=== PATIENT | female | born 1945 | race Caucasian/White ===

== ENCOUNTER 2016-07-10 13:57 | Inpatient (IN) | payer MEDICARE, OTHER ==
[~2016-07-10] VITALS: Ht 160 cm; Wt 109.1 kg
[2016-07-10] VITALS (9 sets, daily range): BP systolic 110–143; BP diastolic 50–70; PULSE 59–75; RESP 14–19; O2SAT 95–100
[~2016-07-10 13:57] MED LIST: ALBU8.5H4 IH; CITA20TA PO; IBUP200T48 PO; Multivitamin PO
[2016-07-10] MEDS ORDERED: NAPR375T4 PO (14:06)
[2016-07-10] MEDS ORDERED: ACET-171 PO (14:06)
--- NOTE | 2016-07-10 14:16 | ED.REPORT ---
HPI-Chest Pain 40 and Over Date of Service Jul 10, 2016 ED Provider: Lynne Roberts MD This is a 71 year old female presenting to the emergency department complaining of substernal chest pain that began 2 days ago. Chest pain has been intermittent but is worse today, it is now constant without radiation. Denies radiation to arms, back, or jaw. The chest pain is not exertional. Denies tarry stools, vomiting, nausea, dizziness, lightheadedness, headache, cough, SOB, or diaphoresis. Denies lower extremity swelling. She took 2, 81 mg ASA today. She takes daily naproxen and Tylenol for chronic groin pain. Nursing Notes Stated Complaint: CHEST PAIN Chief Complaint: Chest Pain Nursing Notes Reviewed: Yes Allergies: Coded Allergies: No Known Drug Allergies (Verified Allergy, Unknown, 07/10/16) Uncoded Allergies: PEPPERS (Allergy, Unknown, GI, 12/09/03) Scheduled Multivits-Min/Iron/FA/Lutein (Centrum Silver Women Tablet) 8 Mg Iron-400 Mcg- 300 Mcg Tablet 1 EACH PO DAILY Naproxen (Naproxen) 375 Mg Tablet.dr 375 MG PO BIDWM Scheduled PRN Acetaminophen (Acetaminophen) 500 Mg Tablet 500 MG PO Q6H PRN PRN For Pain Albuterol HFA (Proair HFA) 8.5 Gm Hfa.aer.ad 2 PUFFS INHALATION Q4H PRN PRN For Shortness of Breath General Time Seen by MD: 14:13 Chief Complaint Chest pain Hx Obtained From: Patient Arrived By: Ambulance Sudden in Onset?: Yes Onset Occurred: 2 days ago Symptom Duration: Since onset Severity: Current: Mild Pertinent Negative: Pt denies other symptoms Recent Healthcare: No recent doctor visit, No recent hospitalization Similar Sx Previous: No Risk Factors )( CAD Risk Stratification Family history Risk factors reviewed Past Medical History Past Medical History Chronic groin pain Past Surgical History Knee surgeries x2 hernia repair Reports: Cholecystectomy Ambulatory Status Independent Review of Systems Constitutional: Denies: Chills, Fever Respiratory: Denies: Non-productive cough, Shortness of breath Cardiovascular: Reports: Chest pain GI: Denies: Abdominal pain, Nausea, Vomiting Skin: Denies Bruising, Denies Diaphoresis Neurologic: Denies: Confusion, Dizziness, Headache, Lightheaded Complete sys rev & neg: except as marked. Physical Exam Initial Vital Signs Vital Signs (First) Date Time Temp Pulse Resp B/P Pulse Ox O2 Delivery O2 Flow Rate FiO2 07/10/16 14:00 36.3 75 16 126/61 99 Room Air Initial VS: Reviewed Head / Eyes: Atraumatic, Normocephalic, PERRL ENT: Mucous membranes moist, Conjunctiva normal, No scleral icterus Neck: Supple, Non-tender, Full range of motion Extremities: Vascular intact, Neuro intact, No swelling, No tenderness Skin: Warm, Dry, No cyanosis Neurologic: Alert, Oriented, Nonfocal Psychiatric: Mood/affect normal, Behavior normal, Normal thought content General/Constitutional: Awake, Alert Respiratory / Chest: Breath sounds NL, Breath sounds = bilat, No respiratory distress, No rales, No rhonchi, No wheezing, No stridor Tenderness to left lower sternal border on palpation that is similar to what prompted her ED visit Cardiovascular: Heart rate NL, Regular rhythm, Heart sounds NL, No murmurs, Peripheral circulation NL, Pulses = bilaterally, No gross BP differential Abdomen: Soft, McBurney's non-tender, BS normoactive, No distention, No hernia , No palpable mass Tender LUQ to palpation Interpretation & Diagnostics Lab Results Interpretation Result Diagram: 07/10/16 1435 07/11/16 0540 Test 07/10/16 14:35 White Blood Count 7.7th/mm3 (3.8-10.1) Red Blood Count 4.66mil/mm3 (3.90-5.20) Hemoglobin 13.5g/dL (12.0-15.6) Hematocrit 40.3% (35.0-46.0) Mean Corpuscular Volume 86.5fL (81-100) Mean Corpuscular Hemoglobin 29.0pg (27.0-35.0) Mean Corpuscular Hemoglobin Concent 33.5% (32.0-37.0) Red Cell Distribution Width 13.6% (12.3-15.4) Platelet Count 239bil/L (150-400) Neutrophils (%) (Auto) 62.7% (40-74) Lymphocytes (%) (Auto) 23.4% (14-46) Monocytes (%) (Auto) 9.2% (4-12) Eosinophils (%) (Auto) 4.1% (0-5) Basophils (%) (Auto) 0.5% (0-3) D-Dimer < 0.5mg/L (<0.50) Total Bilirubin 0.4mg/dL (0.0-1.2) Aspartate Amino Transf (AST/SGOT) 14U/L (0-50) Alanine Aminotransferase (ALT/SGPT) 11U/L (0-32) Alkaline Phosphatase 63U/L (25-165) Total Protein 6.9g/dL (6.4-8.4) Albumin 4.2g/dL (3.4-5.0) Hold Regalado Top Tube Received (Received) ECG Interpretation ECG Interpretation: NSR at a rate of 71 ventricular premature complexes PACs Time: 14:25 Interpreted by: ED physician ECG Interpretation: ECG with recurrent symptoms NSR at a rate of 69 No changes from prior Time: 17:17 Interpreted by: ED physician X-Ray Chest Interpretation Chest Xray Interpretation: IMPRESSION: No acute cardiopulmonary disease process. Dictated by: Shirlene Anderson MD, PhD on 07/10/2016 at 15:32 Approved by: Shirlene Anderson MD, PhD on 07/10/2016 at 15:32 Re-Eval/Medical Decision Med Decision/Clinical Course presents to the ER with 3 days of CP, pain in the last hours. EKG without ischemia. Initial trop slightly elevated and 2 hr repeat back to baseline. Chest pain completely resolved with 3 SL nitro. Recurred at rest about 2 hours later. Repeat EKG still showing no acute ischemia. Care escalated with pain recurring at rest and responsive to nitro. Nitro and heparin gtts started. Admit for further cardiac eval. Time of Eval: 17:12 Re-Evaluation/Progress Note: CP resolved with nitro but is now present on re-evaluation. Discussed lab results and need for admission, all questions addressed Consultation #1: Referral / Consult Name: Ben Royal MD Consulted With: Hospitalist Call Returned at: 17:23 Kettle Hand: Accepts admit Consultation #2: Referral / Consult Name: Teresa Canela MD Consulted With: Cardiology Call Returned at: 17:42 Kettle Hand: Will see patient Counseled Regarding: Diagnosis, Lab results, Need for follow-up, Need for admission Discharge & Departure Primary Impression: ACS (acute coronary syndrome) Additional Impression: Chest pain Chest pain type: unspecified Qualified Code: R07.9 - Chest pain, unspecified Disposition: ADMITTED TO HOSPITAL Discharge Condition All VS Reviewed: Yes Condition: Stable Referrals: Roro Pozo (PCP) (Family) Crit Care Except Billable Proc Time Spent: 30-74 minutes Services Performed: Patient management by me, Time spent at bedside, Reviewing test results, Reviewing imaging, Discussing patient care, Documentation in record, Time with fam/surrogate Scribe Attestation Portions of this note were transcribed by Bulmaro Barlow. Dr. Armando Castro personally performed the history, physical exam and medical decision-making; I reviewed and confirmed the accuracy of the information in the transcribed note. Signed by: marimar Hernandez. 07/10/2016, 18:00. Lynne Roberts MD Jul 10, 2016 14:16 BULMARO BARLOW Jul 10, 2016 14:18 Chest Xray Interpretation: IMPRESSION: No acute cardiopulmonary disease process. Dictated by: Shirlene Anderson MD, PhD on 07/10/2016 at 15:32 Approved by: Shirlene Anderson MD, PhD on 07/10/2016 at 15:32 Re-Eval/Medical Decision Time of Eval: 17:12 Re-Evaluation/Progress Note: CP resolved with nitro but is now present on re-evaluation. Discussed lab results and need for admission, all questions addressed Consultation #1: Referral / Consult Name: Ben Royal MD Consulted With: Hospitalist Call Returned at: 17:23 Kettle Hand: Accepts admit Consultation #2: Referral / Consult Name: Teresa Canela MD Consulted With: Cardiology Call Returned at: 17:42 Kettle Hand: Will see patient Counseled Regarding: Diagnosis, Lab results, Need for follow-up, Need for admission Discharge & Departure Primary Impression: Chest pain Chest pain type: unspecified Qualified Code: R07.9 - Chest pain, unspecified Disposition: ADMITTED TO HOSPITAL Discharge Condition All VS Reviewed: Yes Condition: Stable Referrals: Roro Pozo (PCP) (Family) Scribe Attestation Portions of this note were transcribed by Bulmaro Barlow. Dr. Armando Castro personally performed the history, physical exam and medical decision-making; I reviewed and confirmed the accuracy of the information in the transcribed note. Signed by: marimar Hernandez. 07/10/2016, 18:00. Lynne Roberts MD Jul 10, 2016 14:16 BULMARO BARLOW Jul 10, 2016 14:18
[2016-07-10 14:53] LABS: BASOPHILS % (AUTO) 0.5 % (0-3); EOSINOPHILS % (AUTO) 4.1 % (0-5); MONOCYTES % (AUTO) 9.2 % (4-12); Mean Corpuscular Volume 86.5 fL (81-100); NEUTROPHILS % (AUTO) 62.7 % (40-74); Platelet Count 239 bil/L (150-400)
[2016-07-10 15:16] LABS: TROPONIN T 0.012 ug/L (0.0-0.011)
[2016-07-10 15:27] LABS: Magnesium 2.1 mg/dL (1.6-2.6)
--- NOTE | 2016-07-10 15:33 | DRSVH ---
PROCEDURE: X-RAY CHEST ONE VIEW, PORTABLE ([id number]) INDICATIONS: chest pain TECHNIQUE: One view of the chest was acquired. COMPARISON: [facility], , CHEST 1VW (PORTABLE), 01/05/2010, 4:45. FINDINGS: Surgical changes and devices: None. Lungs and pleura: No pleural effusions or pneumothorax. Lungs are clear. Mediastinum: Mediastinal contours appear normal. Heart size is normal. Bones and chest wall: No suspicious bony lesions. Overlying soft tissues appear unremarkable. IMPRESSION: No acute cardiopulmonary disease process. Dictated by: Shirlene Anderson MD, PhD on 07/10/2016 at 15:32 Approved by: Shirlene Anderson MD, PhD on 07/10/2016 at 15:32
[2016-07-10] MEDS ORDERED: Nitroglycerin 50 mg/250 mL D5W 50,000 MCG in IV Premix 1 EACH IV ONE (17:18)
[2016-07-10] MEDS ORDERED: Heparin 5,000 Unit/mL Inj IVPUSH ONE (17:20)
[2016-07-10] MEDS ORDERED: Heparin 25K Unit/500mL 0.45 NS 25,000 UNIT in IV Premix 1 EACH IV ONE (17:20)
[2016-07-10] MEDS ORDERED: MULT-1065 PO (18:27)
[2016-07-10] MEDS ORDERED: ALBU8.5H2 INHALATION (18:27)
[2016-07-10] MEDS ORDERED: Alum-Mag Hydrox-Simeth 30 mL Suspension PO PRN (19:10)
[2016-07-10] MEDS ORDERED: Ondansetron 2 mg/mL 2 mL Inj IVPUSH PRN (19:10)
--- NOTE | 2016-07-10 19:34 | PCM.HPMED ---
Subjective Date of Service Jul 10, 2016 Primary Provider: Admitting Physician: Ben Royal MD Primary Care Physician: Roro Pozo Attending Physician: Ben Royal MD Chief Complaint: Chest pain History of Present Illness: This is a 71 year old with past medical history of obesity, inguinal hernia who presented to the emergency room complaining of substernal chest pain that has been going on for 2-3 days . Chest pain is retrosternal , intermittent ,78/10 intensity, non radiating , initially relieved by aspirin , but has gotten worse today. She denies shortness of breath,, vomiting, nausea, dizziness, lightheadedness, headache, cough,fever, chills, or diaphoresis. She usually takes daily naproxen and Tylenol for chronic groin pain. Review of Systems: Review of systems is pertinent for chest pain as described above in history of present illness, otherwise a comprehensive review by 10 points is negative Allergies Coded Allergies: No Known Drug Allergies (Verified Allergy, Unknown, 07/10/16) Uncoded Allergies: PEPPERS (Allergy, Unknown, GI, 12/09/03) Home Medications Scheduled Albuterol-Expunged Drug, Do Not Renew! (Albuterol-Expunged Drug, Do Not Renew!) 8.5 Gm Hfa.aer.ad 2 PUFFS IH PRN Take 2 puffs every 4-6 hours if needed for wheezing. Naproxen (Naproxen) 375 Mg Tablet.dr 375 MG PO BID Scheduled PRN Acetaminophen (Acetaminophen) 500 Mg Tablet 500 MG PO Q6H PRN PRN For Pain PMH Obesity, inguinal hernia, groin pain Surgical History Knee surgeries x2 hernia repair Reports: Cholecystectomy Family History Family history reviewed and is pertinent for sister with atrial fibrillation and heart disease, father of heart disease at 70. Mother had COPD Social History Hx Alcohol Use: Yes (twice a week) Alcoholic Drinks Per Day: 1 glass of wine Hx Substance Use: No Hx Tobacco Use: No Living Arrangement: with Family Exam Vital Signs Vital Sign - Last Date Time Temp Pulse Resp B/P Pulse Ox O2 Delivery O2 Flow Rate FiO2 07/10/16 18:31 67 19 143/61 100 Room Air 07/10/16 14:00 36.3 Exam General/Constitutional: Obese female in bed comfortably, no acute distress HEENT : Atraumatic, Normocephalic, PERRL, sclerae anicteric Mouth: Mucous membranes moist, no oral thrush Neck: Supple, Non-tender, Full range of motion, no JVD, trachea is midline Lungs: Clear bilaterally, local, no wheezing Heart : S1, S2 regular with no gallop no murmur Abdomen: Soft, nontender, nondistended. Bowel sounds normal quadrantss, no deformity Extremities: Vascular intact, , No swelling, No tenderness Skin: Warm, Dry, No cyanosis, no rash, no ulcers Neurologic: Alert, Oriented x3 , grossly intact Nonfocal Psychiatric: Mood/affect normal, Behavior normal, Normal thought content Lab and Diagnostics Result Diagram: 07/10/16 1435 07/10/16 1435 X-Rays, CTs and MRIs Chest x-ray personally reviewed: No acute cardiopulmonary disease process. Assessment & Plan 1. Acute chest pain . 2 Hypertension Admit inpatient /telemetry monitoring. Troponin borderline elevated. Follow up troponin trend. Initial EKG reviewed and is unremarkable to my interpretation Heparin drip protocol initiated by ER physician as well as nitroglycerin drip. Aspirin 81 mg orally daily. Home medications reviewed and reconciled . Obtain, A1c, lipid profile , TSH . Cardiology consulted. May need cardiac cath is troponin continue trending up. Full code . Pain Evaluation: Adequate Pain Control VTE Prophylaxis: Other (On heparin drip for acute chest pain ) Resuscitation Status: CPR: Attempt Resuscitation Time spent 75 minutes Ben Royal MD Jul 10, 2016 19:34
[2016-07-10 20:30] LABS: APPEARANCE,URINE CLOUDY (CLEAR,HAZY); COLOR,URINE YELLOW (YELLOW); OCCULT BLOOD,URINE TRACE (NEGATIVE); UROBILINOGEN,URINE NORMAL (NORMAL)
[2016-07-10 20:52] LABS: Creatine Kinase 48 U/L (21-215); Magnesium 2.2 mg/dL (1.6-2.6)
[2016-07-10 21:03] LABS: TROPONIN T < 0.010 ug/L (0.0-0.011)
[2016-07-11] VITALS (10 sets, daily range): BP systolic 125–164; BP diastolic 71–84; PULSE 67–75; RESP 16–20; O2SAT 96–98
[2016-07-11] MEDS: Sodium Chloride LOK Flush 10 mL Syringe IVFLUSH SCH ×3 (00:30→16:45)
[2016-07-11 02:11] LABS: Creatine Kinase 47 U/L (21-215)
[2016-07-11] MEDS ORDERED: Heparin 25K Unit/500mL 0.45 NS 25,000 UNIT in IV Premix 1 EACH IV SCH (02:40)
[2016-07-11] MEDS ORDERED: Heparin Protocol Boluses IVPUSH PRN (02:40)
--- NOTE | 2016-07-11 03:10 | NUR ---
Admit/CP Pt arrived to [facility] RM 2017 at approximately 2000. Pt arrived via gurney and was able to transfer self to bed with strong gait noted. Pt states that she will need to get up frequently to move her legs as she has chronic groin pain. Pt arrived with Heparin and Nitro gtt's infusing. Pt is A&Ox3 and with no CP at that time. Med Rec completed in ED and Admit completed. Pt orient to hospital policies, call light and bed. Family at bedside. Around 0100 pt c/o of some nausea, diaphoresis as well as some CP. EKG ordered and showed no changes. Increased Nitro gtt to 20mcg and administered 4mg Zofran. BP 164/77 HR 66. Medications effective at decreasing CP and nausea, no further complaints.
--- NOTE | 2016-07-11 09:33 | NUR ---
Social Work Note - Initial Assessment Ladi Alfonso is a 71 yr old admitted for ACS - Chest Pain. EMR reviewed: Pt has Medicare and [employer] Supplement. Her PCP is Roro Pozo. No VA benefits, No LTC insurance. No DPOA - [employer] provided paperwork. See attached CM initial assessment. [employer] met with pt - introduced DC planning and explained SW role. Pt's daughter also in the room. Pt lives at home with her . She is independent at baseline - Drives, uses a cane for long walks. She anticipates going home with no identified needs. [employer] provided support - provided information for pt to explore help with her bill. No other needs identified. Plan: Home with in POV. ERA Moise Addendum: 07/11/16 at 0936 by SWETA COCHRAN SS Amended: Links added.
--- NOTE | 2016-07-11 09:43 | CONS ---
[address] [address] CONSULTATION REPORT PATIENT: JEANNETTE OLMEDO : 1945 MR#: [id number] ADMIT: 07/10/2016 JOB ID: [id number] DATE OF SERVICE: 07/11/2016 CHIEF COMPLAINT: Chest pain. I have been asked by the hospitalist to consult on this patient. HISTORY OF PRESENT ILLNESS: The patient is a 71-year-old woman, who tells me that she has a history of white coat hypertension but is not on any medications at this time. She says for the past couple of days she has been having chest discomfort in her mid chest. It has some components of pressure, some sharp and some dull. The pain has been fairly steady. Did not worsen with exertion. It is not worsen with deep inspiration, and felt somewhat better when she was sitting up rather than lying down. She came to the ED given these symptoms, and had no acute EKG changes thus far, and she is now ruled out by serial cardiac markers. She denies any associated shortness of breath, nausea, vomiting, diaphoresis. She denies problems with orthopnea, PND, increased lower extremity swelling, palpitations, presyncope, or syncope. PAST MEDICAL HISTORY/PROBLEM LIST: History of GERD. ALLERGIES: PEPPERS. SOCIAL HISTORY: No tobacco. No significant alcohol. FAMILY HISTORY: A sister with atrial fibrillation. Mother with history of hypertension. Father had some heart problems. REVIEW OF SYSTEMS: Overall health: No fevers, chills, night sweats, or weight loss. GI: She has problems with GERD but no blood in her stool. No history of bleeding hemorrhoids. : No dysuria, no hematuria. No history of kidney stones. Musculoskeletal: Chronic groin pain that affects her when she stands. This occurred after sustaining an injury. Derm: No rashes, skin breakdown. Heme: No easy bruising or bleeding. Neuro: No history of chronic headaches or stroke. Endocrine: No history of heat or cold intolerance. Pulmonary: No history of shortness of breath. Cardiac: As per HPI. ENT: No difficulty swallowing. No sore throat. Ophtho: No acute vision changes. Psych: No acute issues. All other review of systems in a 12 point review of systems are negative. PHYSICAL EXAMINATION: Blood pressure is 160/84, and this is on a nitroglycerin drip. She is afebrile. Heart rate 70. Sats are 98% on 2 L. In general, in no acute distress. Speaking in full sentences without pressured breath. Head and neck exam: Normocephalic, atraumatic. Neck: No obvious JV distention. No carotid bruits appreciated. Heart exam is regular rhythm. I do not appreciate murmurs, gallops, rubs appreciated. Lungs clear to auscultation anteriorly. Back: No CVA tenderness on palpation. Abdomen is soft. Groin site: Some tenderness with palpation. Extremities: Well-healed surgical scars from knee replacements. There are 2+ distal pulses bilaterally. Skin without breakdown appreciated. Neurologic: Alert and oriented x3. Gait is not tested. ENT: No erythema. Mucous members moist. Ophtho: Vision is grossly normal. Psych: Appropriate mood and affect. CURRENT MEDICATIONS: Include: 1. Aspirin 81 mg a day. 2. She is on a heparin drip and nitro drip, which we plan on stopping. 3. She uses naproxen for chronic left groin pain. 4. No other medications at this time. LABORATORIES: Show white count 7.7, H and H 13.5 and 40.3, platelets of 239,000. Chemistry shows a borderline troponin, but this has now trended down to negative. Sodium 140, potassium 4.8. BUN and creatinine 24 and 0.75. LDL cholesterol 108, HDL of 75. IMAGING: Shows a chest x-ray that shows no acute cardiopulmonary disease. LABORATORY AND DIAGNOSTIC STUDIES: EKG shows no acute EKG changes. IMPRESSION: The patient came in with a dull discomfort that did not worsen with exertion which seemed to get better with sitting upward, did not worsen with deep inspiration. It is not clear this is cardiac etiology. In fact, it might be related to a gastrointestinal issue. Fortunately, she is ruled out by serial cardiac markers and has no acute EKG changes. However, she is hypertensive today and, with her age, has some risk factors for coronary disease. PLAN: 1. Will get an echocardiogram. 2. Will stop the nitroglycerin and heparin, but will put her on amlodipine for her blood pressure. 3. I am going to see if we can get a routine treadmill study on her today to risk stratify her. 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 TIME SPENT: I spent 50 minutes speaking with this patient, evaluating her and reviewing her chart. JOSE
--- NOTE | 2016-07-11 11:39 | NUR ---
Case Management: Perales and Medicare D pamphlet delivered and explained to pt. and pt's. daughter, Lindsey. Original placed in chart. Copy left at bedside. Olivia Palafox RN
--- NOTE | 2016-07-11 16:49 | NUR ---
Cardiac Pt denies CP/Pressure today. Exercise stress test done. Pt to have nuclear med. stress test tomorrow morning. NPO after midnight, no caffeine. Pt nitro gtt off this morning. Not on any BB or narcotics. Tele SR 60s. Dr. Canela ordered Amlodipine 2.5mg PO if SBP >150; this morning SBP was 140s-160. This afternoon, just prior giving amlodipine, SBP 120s, dose held at this time.
--- NOTE | 2016-07-11 16:54 | DRSVH ---
[facility] [address] [place] [address] Echocardiogram Report Name: JEANNETTE OLMEDO LStudy Date: Height: 6 3 in Hospital Exam Location: [facility] Weight: 2 48 lb Gender: Female BSA: 2.1 m2 : 1945 Age: 71 yrs BP: 160/8 4 mmHg Reason For Study: Chest pain Ordering Physician: HOSPITALIST [facility] Performed By: Bhumika Sierra Referring Physician: Roro Pozo Interpretation Summary 1. Normal left ventricular size, wall thickness and systolic function with an estimated EF of 55 to 60% 2. Normal right ventricular size and systolic function. 3. No valvular pathology appreciated There is no old study for comparison Procedure: A two-dimensional transthoracic echocardiogram with color flow and Doppler was performed. There is no prior echocardiogram noted for this patient. The study quality was technically good. The patient was in normal sinus rhythm during the exam. Left Ventricle: The left ventricle is normal in size, wall thickness, and systolic function without any focal wall motion abnormalities. The ejection fraction is estimated to be 55-60%. Assessment of diastolic parameters indicates normal left ventricular diastolic function and normal filling pressures. Right Ventricle: The right ventricle is normal in size and function. Atria: The left atrium is moderately dilated. Right atrial size is normal. There is no Doppler evidence for an interatrial shunt. Mitral Valve: The mitral valve is normal in structure and function. There is trace mitral regurgitation. Aortic Valve: The aortic valve is trileaflet. The aortic valve opens well. No aortic regurgitation is present. Tricuspid Valve: The tricuspid valve is normal in structure and function. There is mild tricuspid regurgitation. The right ventricular systolic pressure is estimated at 34 mmHg assuming a right atrial pressure of 8 mm Hg. Pulmonic Valve: The pulmonic valve is normal in structure and function. There is a trace or physiologic amount of pulmonic regurgitation. Great Vessels: The aortic root is normal size. The ascending aorta is normal in size. The aortic arch is normal in size. The IVC is dilated (diameter is greater than 2.1 cm) yet it collapses greater than 50% with a sniff. This suggests a right atrial pressure of 8 mm Hg. Pericardium/ Pleura There is no pericardial effusion. MMode/2D Measurements & Calculations LVIDd: 5.4 cm LA dimension: 4.2 cm RA long axis Ao root diam LVIDs: 3.1 cm FS: 42.9 % LA A2 area: 23.5 cm RA area asc Aorta Diam IVSd: 0.78 cm LA A4 area: 27.8 cm LVPWd: 0.87 cm LA length (vol) : 20.2 cm Ao Arch Diam (Prox RA vol Trans): 2.9 cm LA vol: 89.1 ml : 59.8 ml LA vol index RA : 28.2 mm2 IVC diam: 2.2 cm LV rios. diameter/BSA LV sys. diameter/BSA RVD1 (basal) (cm/m^2): 2.5 (cm/m^2): 1.5 Doppler Measurements & Calculations Ao V2 max MV E max issa MV E/A: 1.2 TR max issa : 150.8 cm/sec : 96.6 cm/sec Med Peak E' Issa : 253.4 cm/sec Ao max PG MV A max issa TR max PG : 9.1 mmHg : 77.8 cm/sec E/E' med: 10.8 : 25.7 mmHg Ao mean PG MV P1/2t: 66.8 msec Lat Peak E' Issa PA V2 max : 5.0 mmHg : 102.4 cm/sec E/E' lat: 11.6 PA mean PG E/e' average: 11.2 PA Accel Time : 0.12 sec MV dec time MV P1/2t max issa Ao V2 mean PA V2 mean : 0.23 sec : 105.8 cm/sec : 71.4 cm/sec Ao V2 VTI: 37.7 cm MVA(P1/2t): 3.3 cm2 Reading Physician:04:54 PM
--- NOTE | 2016-07-11 17:50 | PCM.PNMED ---
Subjective Date of Service Jul 11, 2016 Subjective Patient states she is feeling well this morning, no chest pain, no shortness of breath, no lightheadedness, no dizziness. No somatic complaints. Exam Vital Signs Vital Sign - Last Date Time Temp Pulse Resp B/P Pulse Ox O2 Delivery O2 Flow Rate FiO2 07/11/16 16:00 36.8 67 16 125/73 98 Room Air 07/11/16 07:28 2.00 Intake and Output 07/10/16 07/10/16 07/11/16 Cumulative From/Thru 15:00 23:00 07:00 07/10/16 14:00 - 07/11/16 06:22 Intake Total 878 ml 878 ml Output Total 700 ml 700 ml Balance 178 ml 178 ml Intake Oral 600 ml 600 ml IV Total 278 ml 278 ml Output Urine Total 700 ml 700 ml # Bowel Movements 1 1 Exam General: Obese, Laying in bed, no apparent distress. HEENT: Normocephalic, atraumatic, EOMI grossly, Cardiovascular: Regular rate and rhythm, no clicks murmurs rubs, peripheral pulses 2/4 equal bilaterally there is no tenderness over her sternum. Pulmonary: Clear to auscultation bilaterally, no W/R/R. Abdominal: Soft to palpation, bowel sounds present 4, no hepatosplenomegaly. Negative rebound. Extremities: No edema appreciated. No tenderness, asymmetry. Neuro: Neurologically grossly intact, strength is equal bilaterally upper and lower extremities. MSK: able to move extremities on their own volition, strength 5 out of 5 equal bilaterally to upper and lower extremities. Lab and Diagnostics Result Diagram: 07/10/16 1435 07/11/16 0540 X-Rays, CTs and MRIs Chest x-ray personally reviewed: No acute cardiopulmonary disease process. Cardiac Echo Impressions Echocardiogram performed 07/11/2016 Interpretation Summary 1. Normal left ventricular size, wall thickness and systolic function with an estimated EF of 55 to 60% 2. Normal right ventricular size and systolic function. 3. No valvular pathology appreciated Assessment & Plan 71-year-old woman history of obesity, inguinal hernia repair reported to the emergency department after having substernal chest pain present for 2-3 days. #1 acute chest pain, present on admission, evaluation and treatment ongoing Troponins were negative for elevation. EKG did not show any signs of acute infarct or ischemia Patient had stress test performed today, during which she developed chest pain Chemical stress test tomorrow. Cardiology consultation: Stop nitroglycerin and heparin Continue aspirin Continue on telemetry Stop heparin drip, stop nitroglycerin. TSH normal #2 hypertension, chronicity unknown, present on admission, ongoing 144/71 this a.m. Patient not on any blood pressure medications as an outpatient Cardiology has started the patient on 2.5 mg amlodipine daily. Continue to evaluate its effects in the morning #3 Elevated cholesterol, chronicity unknown, present on admission Total cholesterol 202, LDL 108.2, HDL 75. Not incredibly elevated, however higher than goal and obese 71-year-old with hypertension. Continue statin therapy, aspirin. #3 chronic obesity, present on admission, active A1c pending Nutrition consult Pain Evaluation: Adequate Pain Control GI Prophylaxis: Not indicated VTE Prophylaxis: SANTO [place] Resuscitation Status: CPR: Attempt Resuscitation Attending Statement The patient was seen and examined together with Dr. Lipscomb on 07/11/2016 and I agree with the history, exam and plan as outlined in the note above. . Jean Lipscomb DO Jul 11, 2016 17:50 Tevin Pierre MD Jul 15, 2016 08:04 Jean Lipscomb DO Jul 11, 2016 17:50
[2016-07-11] MEDS: Heparin 5,000 Unit/mL Inj SUBQ SCH (20:30)
[2016-07-12] MEDS: Sodium Chloride LOK Flush 10 mL Syringe IVFLUSH SCH ×2 (00:30→08:30)
[2016-07-12 01:04] VITALS: BP 146/62; PULSE 75; RESP 20; O2SAT 95
[2016-07-12 04:08] VITALS: BP 133/67; PULSE 68; RESP 20; O2SAT 95
--- NOTE | 2016-07-12 05:52 | NUR ---
Cardiac Pt has remained CP free all shift. Pt has been NPO since midnight for Nuclear stress test this am. No caffeine, nitro or BB's given. VSS and Tele SR.
[2016-07-12 08:00] VITALS: BP 140/65; PULSE 65; RESP 16; O2SAT 97
[2016-07-12] MEDS: Heparin 5,000 Unit/mL Inj SUBQ SCH (08:30)
[2016-07-12 12:13] VITALS: BP 153/90; PULSE 75; RESP 18; O2SAT 98
[2016-07-12 12:35] VITALS: PULSE 65
--- NOTE | 2016-07-12 13:11 | NUR ---
OBESITY COUNSELING. Received consult related to obesity counseling. Inpatient status is not appropriate site for obesity intervention. Suggest referral for outpatient counseling.
--- NOTE | 2016-07-12 13:20 | NUR ---
Case Management: WALDEMAR delivered and explained to pt. and spouse. Original placed in chart. Copy left at bedside. Olivia Palafox RN
--- NOTE | 2016-07-12 13:35 | DRSVH ---
PROCEDURE: 1 DAY TREADMILL STRESS TEST Rest and exercise myocardial perfusion SPECT with gated imaging and ejection fraction RADIOPHARMACEUTICAL: 15.3 mCi Tc-99m tetrafosmin IV at rest and 44.7 mCi Tc-99m tetrafosmin IV at pea k exercise. [id number] was performed. INDICATIONS: 71 year-old woman with chest pain. The patient has atrophic ablation. TECHNIQUE: Radiopharmaceutical was injected at peak stress test, and also at rest. SPECT images wer e obtained. SPECT myocardial perfusion images were displayed in short axis, horizontal long axis, an d vertical long axis views. Gated images were reviewed using [employer] software. COMPARISON: NM, MINA PERF SPECT SINGLE (PNL), 07/26/2007, 7:58. NM, MINA PERF SPECT SINGLE (PNL), 07/25, 7:58. CARDIAC STRESS: A standard Rm treadmill exercise tolerance test was performed by the patient under the supervision of an attending staff. The patient exercised for 2 minutes and 29 seconds; functional aerobic impai rment (MARQUISE) is +45%. Hemodynamic data: There is normal blood pressure and heart rate response to exercise stress. Patien t achieved 93% of maximum predicted heart rate at peak exercise. Symptoms: Patient denied chest pain during exercise. EKG: No diagnostic EKG changes of ischemia; no ectopy. FINDINGS: Raw data: There is good myocardial labeling by radiotracer. No significant motion artifacts. Left ventricle function: Gated images demonstrate normal left ventricle wall thickening. No segment al wall motion abnormality. No transient ischemic dilation. The left ventricle resting end-diastoli c volume is normal. Left ventricle stress ejection fraction is greater than 70%; normal values are a daxa 45%. Myocardial perfusion: There is a small, mild, fixed defect in the apex, which is resolved on prone i maging, consistent with attenuation artifact. There is otherwise normal distribution of activity in t he left and right ventricular myocardium. No reversible perfusion defects to suggest myocardial isch emia. Comparison to prior examinations: Compared with the last exam of 07/26/2007, there is no significant c hange. IMPRESSION: 1. Normal myocardial perfusion images. 2. Normal left ventricular volume and systolic function. 3. Severely limited exercise capacity. No chest pain or diagnostic EKG changes for ischemia. PQRS ATTESTATIONS: Measure 322 - Is this imaging test primarily performed on a low-risk surgery patient for preoperative evaluation within 30 days preceding their low-risk non-cardiac surgery? Low-risk surgery is defined as cardiac or myocardial infarction less than 1%, including (but not limited to) endoscopic pr ocedures, superficial procedures, cataract surgery, and excisional breast surgery: Answer: No Measure 323 - Is this imaging test performed primarily for the monitoring of an asymptomatic patient who had percutaneous coronary intervention on the visit date or within 2 years of the visit date? An swer: No Measure 324 - Is this imaging test performed primarily for the initial detection and risk assessment on an asymptomatic, low coronary heart disease patient? Low CHD risk definition = clinicians should consider the maximum number of available patient factors used to estimate risk based on Neville (A TP III criteria), typically age, gender, diabetes, smoking status, and use of blood pressure medicati on, and integrate age appropriate estimates for missing elements, such as LDL or standard blood press ure. Answer: No Dictated by: Ida Palomo M.D. on 07/12/2016 at 13:28 Approved by: Ida Palomo M.D. on 07/12/2016 at 13:34
--- NOTE | 2016-07-12 14:28 | PCM.DIMED ---
Discharge Instructions Date of Service Jul 12, 2016 Dates of Hospitalization Jul 10, 2016 at 18:57 Discharge Diagnosis Discharge Diagnosis 1. Chest pain. 2. Hypertension. 3. Morbid obesity. 4. Chronic right hip pain. Test Results Laboratory Tests 72 Hours Test 07/10/16 14:35 07/10/16 16:23 07/10/16 19:56 07/10/16 19:57 White Blood Count 7.7th/mm3 (3.8-10.1) Red Blood Count 4.66mil/mm3 (3.90-5.20) Hemoglobin 13.5g/dL (12.0-15.6) Hematocrit 40.3% (35.0-46.0) Mean Corpuscular Volume 86.5fL (81-100) Mean Corpuscular Hemoglobin 29.0pg (27.0-35.0) Mean Corpuscular Hemoglobin Concent 33.5% (32.0-37.0) Red Cell Distribution Width 13.6% (12.3-15.4) Platelet Count 239bil/L (150-400) Neutrophils (%) (Auto) 62.7% (40-74) Lymphocytes (%) (Auto) 23.4% (14-46) Monocytes (%) (Auto) 9.2% (4-12) Eosinophils (%) (Auto) 4.1% (0-5) Basophils (%) (Auto) 0.5% (0-3) D-Dimer < 0.5mg/L (<0.50) Sodium Level 138mEq/L (134-144) Potassium Level 3.8mEq/L (3.5-5.2) Chloride Level 101mEq/L (97-108) Carbon Dioxide Level 22mmol/L (18-29) Blood Urea Nitrogen 19mg/dL (8-27) Creatinine 0.71mg/dL (0.57-1.00) Estimat Glomerular Filtration Rate 116mL/min (>59) Glucose Level 125mg/dL (60-99) Calcium Level 8.9mg/dL (8.5-10.1) Magnesium Level 2.1mg/dL (1.6-2.6) Total Bilirubin 0.4mg/dL (0.0-1.2) Aspartate Amino Transf (AST/SGOT) 14U/L (0-50) Alanine Aminotransferase (ALT/SGPT) 11U/L (0-32) Alkaline Phosphatase 63U/L (25-165) Troponin T 0.012ug/L (0.0-0.011) < 0.010ug/L (0.0-0.011) Total Protein 6.9g/dL (6.4-8.4) Albumin 4.2g/dL (3.4-5.0) Hold Regalado Top Tube Received (Received) Hold Urine Received (Received) Urine Color Yellow (YELLOW) Urine Appearance Cloudy (CLEAR,HAZY) Urine pH 5.0 (5.0-8.0) Urine Specific [place] 1.027 (1.003-1.035) Urine Protein Negativemg/dL (NEG,TRACE) Urine Glucose (UA) Negativemg/dL (NEGATIVE) Urine Ketones Negativemg/dL (NEGATIVE) Urine Occult Blood Trace (NEGATIVE) Urine Nitrite Negative (NEGATIVE) Urine Bilirubin Negative (NEGATIVE) Urine Urobilinogen Normalmg/dL (NORMAL) Urine Leukocyte Esterase Moderate (NEGATIVE) Urine RBC 3-10/hpf (0-2) Urine WBC >50/hpf (0-5) Urine Epithelial Cells Moderate/hpf (NONE-MOD) Urine Crystals None seen (NONE SEEN) Urine Bacteria Moderate/hpf (NONE-FEW) Urine Hyaline Casts None/lpf (NONE) Urine Granular Casts None seen (NONE SEEN) Urine Waxy Casts None seen (NONE SEEN) Urine Red Blood Cell Casts None seen (NONE SEEN) Urine White Blood Cell Casts None seen (NONE SEEN) Urine Mucus None seen (None Seen) Urine Trichomonas None seen (NONE SEEN) Urine Yeast None (NONE SEEN) Urinalysis Comment None Urine Culture Reflexed Indicated Test 07/10/16 20:10 07/10/16 23:20 07/11/16 01:11 07/11/16 05:40 Magnesium Level 2.2mg/dL (1.6-2.6) Total Creatine Kinase 48U/L (21-215) 47U/L (21-215) Creatine Kinase MB 1.3ng/mL (0.0-5.3) 1.2ng/mL (0.0-5.3) Creatine Kinase MB % % (0.0-5.0) % (0.0-5.0) Troponin T < 0.010ug/L (0.0-0.011) Thyroid Stimulating Hormone (TSH) 1.460uIU/mL (0.450-4.500) Activated Partial Thromboplast Time 52.5sec (22.8-33.0) 35.9sec (22.8-33.0) Sodium Level 140mEq/L (134-144) Potassium Level 4.8mEq/L (3.5-5.2) Chloride Level 105mEq/L (97-108) Carbon Dioxide Level 19mmol/L (18-29) Blood Urea Nitrogen 24mg/dL (8-27) Creatinine 0.75mg/dL (0.57-1.00) Estimat Glomerular Filtration Rate 109mL/min (>59) Glucose Level 129mg/dL (60-99) Hemoglobin A1c 5.7% (4.8-5.6) Calcium Level 8.4mg/dL (8.5-10.1) Triglycerides Level 94mg/dL (0-149) Cholesterol Level 202mg/dL (100-199) LDL Cholesterol, Calculated 108.200mg/dL (0-99) VLDL Cholesterol 18.800mg/dL HDL Cholesterol 75mg/dL (>39) Cholesterol/HDL Ratio 2.69 (0.0-4.4) Test 07/12/16 03:15 Sodium Level 143mEq/L (134-144) Potassium Level 4.1mEq/L (3.5-5.2) Chloride Level 106mEq/L (97-108) Carbon Dioxide Level 23mmol/L (18-29) Blood Urea Nitrogen 19mg/dL (8-27) Creatinine 0.75mg/dL (0.57-1.00) Estimat Glomerular Filtration Rate 109mL/min (>59) Glucose Level 92mg/dL (60-99) Calcium Level 8.7mg/dL (8.5-10.1) Diet No restrictions Activity No restrictions Call your provider Shortness of breath, Chest pain Patient Instructions -Please follow-up with your primary care physician, Dr. Pozo ), on 07/18/2016 at 1:00 pm. -Please begin taking the following medication: Amlodipine, 5 mg by mouth, once daily . Follow-up with PCP in: 1 week Tevin Pierre MD Jul 12, 2016 14:28
[2016-07-12] MEDS ORDERED: AMLO5TAB2 PO (14:29)
--- NOTE | 2016-07-12 14:43 | NUR ---
Social Work Note: Discharge Data& Assessment: EMR Reviewed. Per pt is medically ready to discharge home via POV. Hilary Alfonso is a 71 year old female admitted on 07/10/2016 for chest pain and ACS. Pt is ambulating in her room at baseline. Per pt is medically improved and ready for discharge. SW met with pt and pt friend at bedside to confirm discharge plan and assess for any unmet needs. Pt friend transporting her home today. Pt denies any other needs. All updated and agreeable to plan. No other discharge needs identified. Plan: Per pt is medically ready to discharge home via POV. Pt denies any other needs. All updated and agreeable to plan. No other discharge needs identified. JUANA Montoya
--- NOTE | 2016-07-12 16:15 | NUR ---
Discharge Pt left via one attendant, ( her friend ) and POV. Pt able to verbalize all instructions and f/u that was given . All questions answered.
--- NOTE | 2016-07-15 08:11 | PCM.DC.MED ---
Discharge Summary Date of Service Jul 15, 2016 Dates of Hospitalization Date of Hospital Admission Jul 10, 2016 at 18:57 Date of Discharge: Jul 12, 2016 Providers: Admitting Physician: Ben Royal MD Primary Care Physician: Roro Pozo Attending Physician: Ben Royal MD Diagnosis at Time of Discharge Diagnosis at Time of Discharge 1. Chest pain. 2. Hypertension. 3. Morbid obesity. 4. Chronic right hip pain. Consultations Cardiology Procedures XRay, CTs & MRIs TREADMILL STRESS TEST IMPRESSION: 1. Normal myocardial perfusion images. 2. Normal left ventricular volume and systolic function. 3. Severely limited exercise capacity. No chest pain or diagnostic EKG changes for ischemia. Dictated and approved by: Ida Palomo M.D. on 07/12/2016 at 13:28 X-RAY CHEST ONE VIEW, PORTABLE IMPRESSION: No acute cardiopulmonary disease process. Dictated by: Shirlene Anderson MD, PhD on 07/10/2016 at 15:32 ECG 12 Lead Sinus rhythm, rate 62, QTC 432, no acute ST or T-wave changes; no remarkable changes of the course of several studies. Cardiac Echo Impression Interpretation Summary 1. Normal left ventricular size, wall thickness and systolic function with an estimated EF of 55 to 60% 2. Normal right ventricular size and systolic function. 3. No valvular pathology appreciated Reading Physician:04:54 PM . Invasive Procedures None Brief History From the H&P performed by Dr. Ben Royal on 07/10/2016: This is a 71 year old with past medical history of obesity, inguinal hernia who presented to the emergency room complaining of substernal chest pain that has been going on for 2-3 days . Chest pain is retrosternal , intermittent ,78/10 intensity, non radiating , initially relieved by aspirin , but has gotten worse today. She denies shortness of breath,, vomiting, nausea, dizziness, lightheadedness, headache, cough,fever, chills, or diaphoresis. She usually takes daily naproxen and Tylenol for chronic groin pain. . Hospital Course 71-year-old woman history of obesity, inguinal hernia repair reported to the emergency department after having substernal chest pain present for 2-3 days. #1 acute chest pain, present on admission, evaluation and treatment ongoing Troponins were negative for elevation. EKG did not show any signs of acute infarct or ischemia Patient developed chest pain during exercise stress test; chemical stress test negative and no further workup needed at this time TSH normal #2 hypertension, chronicity unknown, present on admission, ongoing 144/71 this a.m. Patient not on any blood pressure medications as an outpatient Discharged on amlodipine, 5 mg by mouth, daily #3 Elevated cholesterol, chronicity unknown, present on admission Total cholesterol 202, LDL 108.2, HDL 75. Not incredibly elevated, however higher than goal and obese 71-year-old with hypertension. Continue statin therapy, aspirin. #3 chronic obesity, present on admission, active A1c performed Nutrition consult provided Exam Vital Signs (Last) Date Time Temp Pulse Resp B/P Pulse Ox O2 Delivery O2 Flow Rate FiO2 07/12/16 12:35 65 07/12/16 12:13 36.9 18 153/90 98 Room Air 07/11/16 07:28 2.00 Exam General: No acute distress, well-developed, well-nourished, appropriately interactive HEENT: Normocephalic, atraumatic. External ears without defect. Pupils equal, round, and reactive to light and accommodation. Anicteric sclerae, moist conjunctivae, and no lid lag. Oropharynx free of erythema and cobble stoning with moist mucosa. Neck: Supple with full range of motion. No jugular venous distension. No bruits. No lymphadenopathy or thyromegaly. Cardiovascular: Regular rate and rhythm with no murmurs, rubs, or gallops appreciated Pulmonary: Clear to auscultation bilaterally with no crackles, wheezes, or rhonchi. Normal respiratory effort with no use of accessory muscles. Abdomen: Bowel tones present. Soft, nontender, nondistended. No hepatosplenomegaly or masses appreciated. Extremities: No clubbing, cyanosis, edema, or lymphadenopathy appreciated. Skin: Normal temperature, turgor, and texture; no rash, ulcers, or subcutaneous nodules appreciated. Neurological: Cranial nerves grossly intact. Normal muscle strength, tone, and bulk. Reflexes, coordination, and sensory function within normal limits. No known gait impairment. Psychiatric: Normal mood and affect. Alert and oriented to person, place, and time. Test 07/10/16 14:35 07/10/16 19:56 07/10/16 19:57 07/10/16 20:10 White Blood Count 7.7th/mm3 (3.8-10.1) Red Blood Count 4.66mil/mm3 (3.90-5.20) Hemoglobin 13.5g/dL (12.0-15.6) Hematocrit 40.3% (35.0-46.0) Mean Corpuscular Volume 86.5fL (81-100) Mean Corpuscular Hemoglobin 29.0pg (27.0-35.0) Mean Corpuscular Hemoglobin Concent 33.5% (32.0-37.0) Red Cell Distribution Width 13.6% (12.3-15.4) Platelet Count 239bil/L (150-400) Neutrophils (%) (Auto) 62.7% (40-74) Lymphocytes (%) (Auto) 23.4% (14-46) Monocytes (%) (Auto) 9.2% (4-12) Eosinophils (%) (Auto) 4.1% (0-5) Basophils (%) (Auto) 0.5% (0-3) D-Dimer < 0.5mg/L (<0.50) Total Bilirubin 0.4mg/dL (0.0-1.2) Aspartate Amino Transf (AST/SGOT) 14U/L (0-50) Alanine Aminotransferase (ALT/SGPT) 11U/L (0-32) Alkaline Phosphatase 63U/L (25-165) Total Protein 6.9g/dL (6.4-8.4) Albumin 4.2g/dL (3.4-5.0) Hold Regalado Top Tube Received (Received) Hold Urine Received (Received) Urine Color Yellow (YELLOW) Urine Appearance Cloudy (CLEAR,HAZY) Urine pH 5.0 (5.0-8.0) Urine Specific [place] 1.027 (1.003-1.035) Urine Protein Negativemg/dL (NEG,TRACE) Urine Glucose (UA) Negativemg/dL (NEGATIVE) Urine Ketones Negativemg/dL (NEGATIVE) Urine Occult Blood Trace (NEGATIVE) Urine Nitrite Negative (NEGATIVE) Urine Bilirubin Negative (NEGATIVE) Urine Urobilinogen Normalmg/dL (NORMAL) Urine Leukocyte Esterase Moderate (NEGATIVE) Urine RBC 3-10/hpf (0-2) Urine WBC >50/hpf (0-5) Urine Epithelial Cells Moderate/hpf (NONE-MOD) Urine Crystals None seen (NONE SEEN) Urine Bacteria Moderate/hpf (NONE-FEW) Urine Hyaline Casts None/lpf (NONE) Urine Granular Casts None seen (NONE SEEN) Urine Waxy Casts None seen (NONE SEEN) Urine Red Blood Cell Casts None seen (NONE SEEN) Urine White Blood Cell Casts None seen (NONE SEEN) Urine Mucus None seen (None Seen) Urine Trichomonas None seen (NONE SEEN) Urine Yeast None (NONE SEEN) Urinalysis Comment None Urine Culture Reflexed Indicated Magnesium Level 2.2mg/dL (1.6-2.6) Troponin T < 0.010ug/L (0.0-0.011) Thyroid Stimulating Hormone (TSH) 1.460uIU/mL (0.450-4.500) Test 07/11/16 01:11 07/11/16 05:40 07/12/16 03:15 Total Creatine Kinase 47U/L (21-215) Creatine Kinase MB 1.2ng/mL (0.0-5.3) Creatine Kinase MB % % (0.0-5.0) Activated Partial Thromboplast Time 35.9sec (22.8-33.0) Hemoglobin A1c 5.7% (4.8-5.6) Triglycerides Level 94mg/dL (0-149) Cholesterol Level 202mg/dL (100-199) LDL Cholesterol, Calculated 108.200mg/dL (0-99) VLDL Cholesterol 18.800mg/dL HDL Cholesterol 75mg/dL (>39) Cholesterol/HDL Ratio 2.69 (0.0-4.4) Sodium Level 143mEq/L (134-144) Potassium Level 4.1mEq/L (3.5-5.2) Chloride Level 106mEq/L (97-108) Carbon Dioxide Level 23mmol/L (18-29) Blood Urea Nitrogen 19mg/dL (8-27) Creatinine 0.75mg/dL (0.57-1.00) Estimat Glomerular Filtration Rate 109mL/min (>59) Glucose Level 92mg/dL (60-99) Calcium Level 8.7mg/dL (8.5-10.1) Microbiology Results None Discharge Medications Discharge Medications Amlodipine (Amlodipine) 5 Mg Tablet 5 MG PO DAILY Prescribed by: ANA ROSA HARDY MD Multivits-Min/Iron/FA/Lutein (Centrum Silver Women Tablet) 8 Mg Iron-400 Mcg- 300 Mcg Tablet 1 EACH PO DAILY (Reported) Naproxen (Naproxen) 375 Mg Tablet. 375 MG PO BIDWM (Reported) As needed Acetaminophen (Acetaminophen) 500 Mg Tablet 500 MG PO Q6H PRN PRN For Pain ( Reported) Albuterol HFA (Proair HFA) 8.5 Gm Hfa.aer.ad 2 PUFFS INHALATION Q4H PRN PRN For Shortness of Breath (Reported) Followup Plan Discharge Diet: No restrictions Discharge Activity: No restrictions Patient Instructions -Please follow-up with your primary care physician, Dr. Pozo ), on 07/18/2016 at 1:00 pm. -Please begin taking the following medication: Amlodipine, 5 mg by mouth, once daily . Follow-up with PCP in: 1 week Time spent Greater than 30 minutes was spent in preparation of discharge with greater than 50% of that time dedicated to patient counseling and coordination of care. . copies to: Roro Pozo Robert W MD Jul 15, 2016 08:11
== END 2016-07-12 16:25 | disposition home or self-care (01) | DRG 313 ==
LOC: SED 13:57 → OBSVTOIN 18:57 → PCC 18:57
PROVIDERS: ADMIT Internal Medicine; ATTEND Internal Medicine
DX: R07.9 Chest pain, unspecified (principal); M25.551 Pain in right hip; Z79.51 Long term (current) use of inhaled steroids; Z79.82 Long term (current) use of aspirin